=== PATIENT | male | born 1955 | race Caucasian/White ===

== ENCOUNTER 2017-01-29 13:03 | Day surgery (SDC) | payer OTHER ==
[~2017-01-29] VITALS: Ht 177.8 cm; Wt 136.0 kg
[~2017-01-29 13:03] MED LIST: AMBIEN5 MG PO; GLUCOPHAGE1000 MG PO; LITE COAT ASPI325 M1 PO; LORTAB 7.5-3251 EACH PO; NEURONTIN300 MG PO; TRILIPIX135 MG PO; TRULICITY1.5 MG/0.5 SC; UROXATRAL10 MG PO; ZANAFLEX4 M1 PO; ZESTRIL20 MG PO; ZOCOR40 MG PO
[2017-01-29 13:45] LABS: POINT-OF-CARE METER ID UU14174212
== END 2017-01-29 14:35 | disposition home or self-care (01) ==
LOC: PAIN 13:03
PROVIDERS: Anesthesiology Pain Medicine
DX: M47.816 Spondylosis without myelopathy or radiculopathy, lumbar region (principal); M47.812 Spondylosis without myelopathy or radiculopathy, cervical region; M62.838 Other muscle spasm; I10 Essential (primary) hypertension; E11.9 Type 2 diabetes mellitus without complications; J44.9 Chronic obstructive pulmonary disease, unspecified; J45.909 Unspecified asthma, uncomplicated; Z87.891 Personal history of nicotine dependence; N40.0 Benign prostatic hyperplasia without lower urinary tract symptoms; Z79.84 Long term (current) use of oral hypoglycemic drugs; Z79.82 Long term (current) use of aspirin; Z79.891 Long term (current) use of opiate analgesic; Z79.899 Other long term (current) drug therapy
CPT/HCPCS: 82948; J1030; J2250; J3010; S0020

== ENCOUNTER 2017-03-04 07:39 | Day surgery (SDC) | payer OTHER ==
[~2017-03-04] VITALS: Ht 177.8 cm; Wt 134.0 kg
[2017-03-04 08:07] LABS: POINT-OF-CARE METER ID UU14174212
== END 2017-03-04 09:32 | disposition home or self-care (01) ==
LOC: PAIN 07:39 → SDC 08:30 → PAIN 09:32
PROVIDERS: Anesthesiology Pain Medicine
PROC: 015B3ZZ Destruction of Lumbar Nerve, Percutaneous Approach (ICD-10-PCS; principal; 2017-03-04)
DX: M47.816 Spondylosis without myelopathy or radiculopathy, lumbar region (principal); F41.9 Anxiety disorder, unspecified; M25.562 Pain in left knee; M62.838 Other muscle spasm; M47.812 Spondylosis without myelopathy or radiculopathy, cervical region; E11.9 Type 2 diabetes mellitus without complications; I10 Essential (primary) hypertension; G47.00 Insomnia, unspecified; F32.9 Major depressive disorder, single episode, unspecified; E78.5 Hyperlipidemia, unspecified; Z87.891 Personal history of nicotine dependence; Z68.41 Body mass index [BMI] 40.0-44.9, adult; Z79.84 Long term (current) use of oral hypoglycemic drugs
CPT/HCPCS: 82948; J1030; J2250; J3010; S0020